=== PATIENT | female | born 2000 | race Caucasian/White ===

== ENCOUNTER 2023-12-29 08:11 | Outpatient (CLI) | payer BC, SELFPAY ==
--- NOTE | ~2023-12-29 | US_ITS ---
US breast LT complete 12/29/2023 08:28 Indication: Palpable left breast abnormality. Previous benign biopsy at [facility] in 201 9 Procedure: High-resolution Limited ultrasound of the left breast Comparison: No prior studies for comparison. Findings: At 11:00, 4.5 cm from the nipple in the area of palpable concern there is an oval parallel oriented hypoechoic mass measuring 6 x 5.2 x 3 cm with posterior acoustic enhancement and internal va scularity. 3:00, 6 cm from the nipple there is an oval hypoechoic mass measuring 1.7 x 0.6 x 1.1 cm w ith mixed posterior attenuation and no significant internal vascularity. Impression: 1: Left breast masses located at 11:00 and 3:00. Comparison to previous outside mammograms recommende d. BI-RADS CATEGORY 0 - INCOMPLETE STUDY, NEED ADDITIONAL IMAGING EVALUATION. Reviewed, dictated and finalized at location B. Impression: 1: Left breast masses located at 11:00 and 3:00. Comparison to previous outside mammograms recommended. BI-RADS CATEGORY 0 - INCOMPLETE STUDY, NEED ADDITIONAL IMAGING EVALUATION.
== END 2023-12-29 08:12 ==
LOC: MICIMG 08:12
PROVIDERS: PCP Nurse Practitioner Family; Visit Provider Nurse Practitioner
DX: N63.20 Unspecified lump in the left breast, unspecified quadrant (principal); R92.2 Inconclusive mammogram
CPT/HCPCS: 76641

== ENCOUNTER 2024-05-20 08:17 | Outpatient (CLI) | payer BC, SELFPAY ==
--- NOTE | ~2024-05-20 | US_ITS ---
EXAMINATION TYPE: US breast LT limited COMPARISON: 12/29/2023 REASON FOR STUDY: N63.20 - Unspecified lump in the left breast, unspecified... TECHNIQUE: Targeted sonographic evaluation of the left breast was performed. INTERPRETATION: At the 3:00 position left breast, 6 cm on the portal, there is a 1.7 x 1.1 x 0.6 cm parallel, circums cribed ovoid hypoechoic solid mass. No posterior shadowing. At the level, posterior left breast, 4.5 cm from the nipple, there is a 5.7 x 2.6 x 6.0 cm hypoechoic solid circumscribed parallel mass. No po sterior shadowing. IMPRESSION: 2 solid left breast masses, as detailed above, which are stable from prior exam, most compatible with fibroadenomas. BI-RADS CATEGORY: BI-RADS 2: Benign Reviewed, dictated and finalized at [facility]. INSPECTOR IMPRESSION: 2 solid left breast masses, as detailed above, which are stable from prior exam , most compatible with fibroadenomas. BI-RADS CATEGORY: BI-RADS 2: Benign
== END 2024-05-20 08:18 | disposition home or self-care (01) ==
LOC: MICIMG 08:18
PROVIDERS: PCP Nurse Practitioner Family; Visit Provider Surgery
DX: N63.20 Unspecified lump in the left breast, unspecified quadrant (principal); D24.2 Benign neoplasm of left breast
CPT/HCPCS: 76642

== ENCOUNTER 2024-11-24 01:10 | Day surgery (SDC) | payer BC, SELFPAY ==
--- NOTE | 2024-11-18 15:13 | PC.NURSE ---
Report to the Outpatient Waiting Room, entrance under the green pavilion located off [facility], at time _6AM on date _11/24/24 . Planned Procedure Time: _7:30 AM .? Time changes happen often and if your time is changed the preop area will call you the afternoon before. - You and your visitor will be asked to self-screen and do not enter if you have any COVID symptoms. Please call surgeon if you need to reschedule. - A mask is optional within the hospital at this time. Patients may have clear liquids (water, carbonated beverages, clear teas, apple juice) until 3 hours prior to surgery ( 4:30 AM) with a maximum of 20 ounces. - No food from midnight until time of surgery and no smoking, or chewing tobacco (or any form of nicotine). No chewing gum, candy or mints. Take only the following medications with a SIP of water on the morning of surgery: ___BUSPIRONE DO NOT STOP ANY OF YOUR OTHER PRESCRIPTION MEDICATIONS PRIOR TO SURGERY EXCEPT THE FOLLOWING Hold all vitamins and supplements for 3 days per anesthesiologist. Medications to discontinue per physician NONE Please no make-up, nail prydeinig, hairspray, perfume, deodorant, or body powder the day of surgery.? No jewelry (including any body piercings) or valuables the day of surgery, leave them at home.? Please take a shower or bath the night before, or the morning of, surgery with an antibacterial soap.? Wear comfortable, loose fitting clothing.? Children are encouraged to wear pajamas. - Jewelry must be removed prior to entering the operating room.? Rings and piercings that are not removed may be cut off. - The hospital will not accept responsibility for valuables.? - Please leave all valuables, including medications, at home the day of surgery. If you are going home after surgery, a licensed port cdl a driver must drive you home.? - NO public transportation without another adult if you receive anesthesia. - We recommend that an adult stay with you for 24 hours following discharge. - We also recommend that you do not drive, make important decision, drink alcoholic beverages, or take any drugs that were not prescribed by your health care provider for at least 24 hours after your discharge time. For Pediatric surgeries, we recommend two adults accompany the child home. Follow any additional instructions given to you from your surgeon. Telephone instructions given to __PATIENT and asked if any additional questions and then verbalized understanding. Patient advised to call surgeon office or pre surgery nurse liaison [phone] if any additional questions.
[2024-11-18 15:22] VITALS: BMI 22.9
[2024-11-24] VITALS (7 sets, daily range): BP systolic 118–132; BP diastolic 64–76; PULSE 83–141; RESP 16–20; TEMP 36.2–36.9; O2SAT 97–100; BMI 23.2
[2024-11-24] MEDS: LACTATED RINGERS 1,000 ML 30 ML IV CONT (06:50)
[2024-11-24] MEDS: ACETAMINOPHEN 500 MG TABLET 1000 MG PO (06:55)
--- NOTE | 2024-11-24 06:56 | P.PNAN_ITS ---
Anes - Initial Pre Proc Eval Procedure: Operation Date: 11/24/24 07:30 Proposed Procedures p Excisional Biopsy of Left Breast, Possible Adjacent Tissue Transfer - Jailene Silva MD Date/Time: 11/24/24 06:56 Surgeon: Jailene Silva MD Pre Op Diagnosis: fibroadenoma of left breast Patient Data Age: 24 Gender: F Height: 1.65 m Weight: 62.6 kg Allergies Allergy/AdvReac Type Severity Reaction Status Date / Time No Known Allergies Allergy Verified 11/18/24 15:11 Home Medications ?Medication ?Instructions ?Recorded ?Confirmed ?Type buspirone 7.5 mg tablet 7.5 mg PO BID 12/16/23 11/18/24 History clomipramine 25 mg capsule 25 mg PO HS 12/16/23 11/18/24 History drospirenone 3 mg-ethinyl 1 tablet PO DAILY 12/16/23 11/18/24 History estradiol 0.02 mg tablet (Vestura (28)) loratadine 10 mg tablet (Allergy 10 mg PO DAILY 12/16/23 11/18/24 History Relief (loratadine)) venlafaxine 75 mg tablet 75 mg PO HS 12/16/23 11/18/24 History rimegepant 75 mg disintegrating 75 mg PO ONCE PRN migraine 06/28/24 11/18/24 Rx tablet (Nurtec ODT) headache #8 tabs Patient hx anesthesia problems: none Family hx anesthesia problems: none Results Review: All pre-operative results and documents have been reviewed as part of the pre- operative evaluation. [facility] Past Medical History Medical History Migraine Anxiety Surgical History Surgical History History of placement of ear tubes Family History Family History Father Malignant neoplasm of prostate Heart disease Hypertension Mother Hypertension Depression Grandparent Hypertension Grandparent Malignant neoplasm of prostate Heart disease Ovarian cancer Social History Social History Smoking status: Never smoker Alcohol intake: current Drinks per week: 1 Substance use: never Substance use type: does not use Do You Feel Safe in your Home?: Yes Lack of Transportation: No Lack of Food: Never True Current Housing: I Have Housing Concerned About Future Housing: No Difficulty Paying Gas/Electric Bills: No Difficulty Paying for Meds: No Currently Unemployed: No Education: Bachelor's Degree Difficulty w/ Childcare or Family Care: No Living arrangements: with family Occupation/Education: student Gender identity (if verbalized by the patient): Female Sexual Orientation (if Verbalized by the Patient): Straight or Heterosexual Spiritual care concerns: No Agree to blood products: Yes Anes - Eval Final PreProcedure Day of Procedure 11/24/24 06:56 Patient weight: normal Heart: regular rate and rhythm Lungs: clear to auscultation Airway: Mallampati scale class 1 Neurological: alert and oriented Last oral intake: >/= 8 hours ASA classification: II Emergent: no Anesthetic plan: proceed Anesthesia type and monitoring: general LMA and standard monitoring Results Review: All pre-operative results and documents have been reviewed as part of the pre- operative evaluation. Informed Consent: The patient's anesthetic plan and its attendant risks and benefits were discussed with the patient/family/POA. Questions were solicited and answers provided to the satisfaction of the patient/family/POA.
[2024-11-24] MEDS: SCOPOLAMINE 1 MG PATCH 1 PATCH TRANSDERM (06:58)
--- NOTE | 2024-11-24 07:02 | WPDHPUPDATE1 ---
History and Physical Update Update Date/Time: 11/24/24 07:02 - Excisional biopsy of left breast mass at 11 o'clock position 4.5 cm from the nipple, possible excision of left breast mass at 3 o'clock position 6 cm from the nipple and possible adjacent tissue transfer. History and Physical has been reviewed, including an updated exam of the patient. There are NO changes in the patient's condition. Risks, benefits, and alternatives have been discussed and questions answered. Patient agrees to proceed with procedure.
[2024-11-24 07:07] LABS: BEDSIDEPREGUCG Negative (Negative)
[2024-11-24] MEDS: ceFAZolin 2 GM/D5W 50 ML 2 GM/50 ML BAG IVPB (07:27)
[2024-11-24] MEDS: LIDOCAINE 1% LOCAL INJ 20 ML VIAL INFILTRATE (07:45)
[2024-11-24] MEDS: BUPIVACAINE/EPINEPHRINE 0.5% 30 ML VIAL 20 ML INFILTRATE (07:46)
--- NOTE | 2024-11-24 08:29 | S_PTH ---
PATIENT: Krista Cruz LOC: [facility] U#:[id number] AGE/SX: 24/F ROOM: RE11/24/[address]: Jailene Silva MD : [id number] BED: DIS: 11/24/2024 SPEC #: [id number] RECD: 11/24/24 08:39 STATUS: ANTHONY REQ #: [id number] BRITTANY: 11/24/24 08:[address]: Jailene Silva DEPT: [facility] [place] Surgical RECD BY: Savanah Tolliver ENTERED: 11/24/24 08:40 SP TYPE: Surgical OTHR DR: Anais Swift APRN Tissues: A - Breast Lumpectomy Procedures: Hematoxylin and Eosin Stain Gross and Microscopic Level 5
--- NOTE | 2024-11-24 08:47 | P.OP_ITS ---
Procedure Note - Detailed Date of Procedure 11/24/24 Pre-op Diagnosis fibroadenoma of left breast Post-op Diagnosis Same Procedure Performed Enlarging biopsy-proven left breast fibroadenoma Surgeon Jailene Silva MD Anesthesia MAC Description of Procedure Patient was identified in the preoperative holding area brought to the operating room suite. She was laid supine in the OR table and sequential compression devices were applied. General anesthesia was induced without difficulty. The left chest area was prepped and draped in a sterile fashion. A inframammary fold incision was made and dissection was carried down through the subcutaneous tissue into the breast tissue cephalad towards the large palpable mass at 11 o'clock position. The mass was easily identified and was noted to be well encapsulated. The mass was completely excised and sent to pathology as a permanent specimen. The cavity was irrigated with saline hemostasis was assured. Two intraparenchymal sutures were placed to approximate the main cavity of the previous mass within the breast to decrease the risk of seroma. The deep dermal layer was then closed with interrupted 3-0 Vicryl followed by 4- 0 Monocryl in a subcuticular fashion for the skin. Dermabond was applied followed by sterile dressing and a surgical bra. Patient was awoken from anesthesia and taken to the recovery in stable condition. All needles, instruments, and sponge counts were correct as reported by the operating room staff. Patient tolerated the procedure well with no immediate complications. Estimated Blood Loss 5 Pathology Yes Complications No immediate complications Condition Stable Disposition PACU [facility] Billing Surgery - Charge Forward: Surgery Billing (CPT 21103)
--- NOTE | 2024-11-24 08:56 | SUR.OPER ---
Surgical specimen sent with PAYAM Enrique and received in pathology by Savanah
== END 2024-11-24 10:20 | disposition home or self-care (01) ==
PROVIDERS: PCP Nurse Practitioner Family; Visit Provider Surgery
PROC: (CPT 19120; principal; 2024-11-24 07:30)
DX: D24.2 Benign neoplasm of left breast (principal); F41.9 Anxiety disorder, unspecified; Z98.890 Other specified postprocedural states; Z80.42 Family history of malignant neoplasm of prostate; Z80.41 Family history of malignant neoplasm of ovary; Z82.49 Family history of ischemic heart disease and other diseases of the circulatory system
CPT/HCPCS: 19120; 88307; A9270; J0690; J1100; J2003; J2250; J2405; J2704; J3010; J7120; L8000; Q9968